=== PATIENT | male | born 1995 | race African-American/Black ===

== ENCOUNTER 2017-12-16 17:40 | Emergency (ER) | payer MEDICAID ==
[~2017-12-16] VITALS: Ht 175.3 cm; Wt 65.0 kg
[2017-12-16] MEDS ORDERED: IBUPROFEN 200MG TABLET ONE (18:29)
[2017-12-16] MEDS ORDERED: ACETAMINOPHEN 325MG TABLET ONE (18:29)
[2017-12-16] MEDS ORDERED: ACETAMINOPHEN 500MG TABLET PO ONE (18:30)
[2017-12-16] MEDS ORDERED: IBUPROFEN 600MG TABLET PO ONE (18:30)
[2017-12-16] MEDS ORDERED: PENICILLIN G BENZATHINE 1,200,000 UNITS/2ML SYR IM ONE (19:30)
[2017-12-16 19:50] VITALS: BP 125/88
== END 2017-12-16 19:57 | disposition home or self-care (01) ==
LOC: ER 17:40
DX: J02.0 Streptococcal pharyngitis (principal); F17.200 Nicotine dependence, unspecified, uncomplicated; F12.10 Cannabis abuse, uncomplicated
CPT/HCPCS: 87430; 96372; 99283; J0561

== ENCOUNTER 2018-06-30 14:17 | Emergency (ER) | payer MEDICAID ==
[~2018-06-30] VITALS: Ht 175.3 cm; Wt 61.0 kg
[2018-06-30 14:19] VITALS: BP 148/101
[2018-06-30] MEDS ORDERED: AZITHROMYCIN 500 MG TABLET PO ONE (16:00)
[2018-06-30] MEDS ORDERED: CEFTRIAXONE SODIUM 250 MG/VIAL IM ONE (16:00)
[2018-06-30] MEDS ORDERED: LIDOCAINE HCL 1% 20ML VIAL (Pyxis) INJ INFIL ONE (16:00)
[2018-06-30] MEDS ORDERED: LIDOCAINE HCL/PF 1% 10 MG/ML 5ML VIAL IJ SCH (16:30)
[2018-06-30 16:58] LABS: CLARITY URINE TURBID (CLEAR); COLOR URINE YELLOW (YELLOW); KETONES URINE NEGATIVE (NEGATIVE); LEUKOCYTE ESTERASE URINE 3+ (NEGATIVE); NITRITE URINE NEGATIVE (NEGATIVE); OCCULT BLOOD URINE 2+ (NEGATIVE); PROTEIN URINE TRACE (NEGATIVE); UROBILINOGEN URINE 0.2 E.U./dL (0.2-1.0)
[2018-07-05 04:14] LABS: CHLAMYDIA TRACHOMATIS NAA Negative (Negative); NEISSERIA GONORRHOEAE NAA Positive (Negative)
== END 2018-06-30 16:35 | disposition home or self-care (01) ==
LOC: ER 15:15
DX: N39.0 Urinary tract infection, site not specified (principal); Z20.2 Contact with and (suspected) exposure to infections with a predominantly sexual mode of transmission; F17.200 Nicotine dependence, unspecified, uncomplicated; F12.10 Cannabis abuse, uncomplicated; Z98.890 Other specified postprocedural states
CPT/HCPCS: 81003; 87491; 87591; 96372; 99284; J0696; J3490

== ENCOUNTER 2021-10-16 20:14 | Emergency (ER) | payer MEDICAID, OTHER ==
[~2021-10-16] VITALS: Ht 175.3 cm; Wt 64.0 kg
[2021-10-16 21:11] VITALS: BP 131/8
== END 2021-10-17 02:18 | disposition home or self-care (01) ==
LOC: ER 20:14
DX: M25.562 Pain in left knee (principal); F12.10 Cannabis abuse, uncomplicated; Z98.890 Other specified postprocedural states; V49.9XXA Car occupant (driver) (passenger) injured in unspecified traffic accident, initial encounter; Y93.89 Activity, other specified; Y92.89 Other specified places as the place of occurrence of the external cause; Y99.8 Other external cause status
CPT/HCPCS: 71045; 73560; 73590; 99284

== ENCOUNTER 2022-08-01 19:46 | Emergency (ER) | payer MEDICAID ==
[~2022-08-01] VITALS: Ht 175.3 cm; Wt 63.6 kg
[2022-08-01 20:03] VITALS: BP 165/107
== END 2022-08-01 20:47 | disposition home or self-care (01) ==
LOC: ER 19:46
DX: K40.90 Unilateral inguinal hernia, without obstruction or gangrene, not specified as recurrent (principal); F12.10 Cannabis abuse, uncomplicated; Z98.890 Other specified postprocedural states
CPT/HCPCS: 99281